=== PATIENT | female | born 1940 | race Caucasian/White ===

== ENCOUNTER 2016-06-05 09:20 | Outpatient (CLI) | payer OTHER, BC ==
--- NOTE | 2016-06-05 10:49 | DIAGNOSTIC IMAGING REPORT ---
PROCEDURE: XR HIP BILATERAL INDICATION: BILATERAL HIP PX TECHNIQUE: AP view of the pelvis and hips with lateral views of the bilateral hips. COMPARISON: None. FINDINGS: RIGHT HIP: Osseous structures and joint spaces are normal. LEFT HIP: Osseous structures and joint spaces are normal. PELVIS: There is severe degenerative joint disease at L5-S1 IMPRESSION: 1. Negative bilateral hips. 2. L5-S1 spondylosis.
== END 2016-06-05 23:00 ==
LOC: XR SRH 09:20
DX: M51.37 Other intervertebral disc degeneration, lumbosacral region (principal); M47.817 Spondylosis without myelopathy or radiculopathy, lumbosacral region